=== PATIENT | male | born 1985 | race Caucasian/White ===

== ENCOUNTER 2025-03-08 22:04 | Emergency (ER) | payer MEDICAID ==
[~2025-03-08] VITALS: Ht 177.8 cm; Wt 68.0 kg
[2025-03-08 22:36] VITALS: BP 163/83; PULSE 86; RESP 16; TEMP 98.1; O2SAT 98
== END 2025-03-08 23:25 | disposition home or self-care (01) ==
LOC: ER 22:04
DX: F10.129 Alcohol abuse with intoxication, unspecified (principal); Y90.9 Presence of alcohol in blood, level not specified
CPT/HCPCS: 99283